=== PATIENT | female | born 1945 | race Hispanic/Latino ===

== ENCOUNTER 2021-01-31 10:54 | Emergency (ER) | payer MEDICARE ==
[2021-01-31] MEDS ORDERED: EPINEPHrine 1 MG/10 ML Abboject SYRINGE ONE (10:57)
[2021-01-31] MEDS ORDERED: Sodium Bicarb 50 MEQ/50 ML Abboject 8.4% SYRINGE ONE (10:57)
[2021-01-31 11:23] LABS: Actual Bicarbonate (HCO3a) 21.6 mEq/L (22-28); Analyzer IN Cardio ER; Base Excess (BEa) -14.2 mEq/L (-2.0 to +3.0); Calcium, Ionized (arterial) 1.78 mmol/L (1.12-1.30); Carboxyhemoglobin (COHb) 1.1 gm% (0.0-3.0); Hemoglobin (Hb) 10.9 g/dL (12.0-16.0); O2 Tension (PaO2), arterial 61.4 mmHg (> 70.0); Potassium - ABG Lab 5.54 mmol/L (3.70-5.30)
[2021-01-31 11:24] LABS: CO2 Tension 136.8 mmHg (35.0-45.0); Puncture Site RBA; pH, Arterial 6.82 (7.35-7.45)
[2021-01-31] MEDS ORDERED: Norepinephrine 8 MG/0.9% NS 250 ML ONE (11:36)
[2021-01-31] MEDS ORDERED: EPINEPHrine 1 MG/ML VIAL ONE (11:40)
[2021-01-31] MEDS ORDERED: Calcium Chloride 1 GM/10 ML Abboject SYRINGE ONE (11:49)
[2021-01-31 11:59] LABS: PTT 71.2 sec (22.9-36.1); Prothrombin Time 54.4 sec (12.0-14.7)
[2021-01-31 12:05] LABS: INR-International Normal Ratio 5.9
[2021-01-31 12:08] LABS: CK (CPK) 556 U/L (29-168); Phosphorus 8.7 mg/dL (2.3-4.7)
[2021-01-31 12:08] LABS: Acetaminophen Less than 6.0 mcg/mL (10.0-30.0); Alcohol 16 mg/dL (Less than 10); Anion Gap 26 mmol/L (10-20); BUN (Urea Nitrogen) 25 mg/dL (9.8-20.1); Calc. Creatinine Clearance 0 mL/min (70-130); Calcium 11.3 mg/dL (7.8-10.44); Carbon Dioxide 18 mmol/L (23-31); Chloride 102 mmol/L (98-107); Glucose 197 mg/dL (83-110); Magnesium 2.3 mg/dL (1.6-2.6); Potassium 5.7 mmol/L (3.5-5.1); Salicylate Less than 8.0 mg/dL (15.0-30.0); Sodium 140 mmol/L (136-145)
[2021-01-31 12:09] LABS: ALT (SGPT) 119 U/L (8-55); AST (SGOT) 1946 U/L (5-34); Albumin 1.4 g/dL (3.4-4.8); Alkaline Phosphatase 308 U/L (40-110); Anion Gap 26 mmol/L (10-20); BUN (Urea Nitrogen) 26 mg/dL (9.8-20.1); Band 20 % (5-11); Bilirubin, Total 0.9 mg/dL (0.2-1.2); Calc. Creatinine Clearance 0 mL/min (70-130); Calcium 11.4 mg/dL (7.8-10.44); Carbon Dioxide 18 mmol/L (23-31); Chloride 102 mmol/L (98-107); Globulin 2.7 g/dL (2.4-3.5); Glucose 200 mg/dL (83-110); Hemoglobin 9.9 g/dL (12.0-16.0); Lymphocytes 31 % (21-51); MDiff Complete? YES; Macrocytosis SLIGHT = 6-15 cells (100X) (0-5/hpf); Mean Corpuscular HGB CONC 30.4 g/dL (32.0-36.0); Mean Corpuscular Hemoglobin 33.1 pg (27.0-31.0); Mean Platelet Volume 10.6 fL (7.4-10.4); Metamyelocyte 1 % (0-0); Monocytes 6 % (0-10); Neutrophil 42 % (42-75); Nucleated RBC 7 % (0); Platelet Count 9 thou/uL (130-400); Polychromasia SLIGHT = 2-3 cells (100X) (0-2/hpf); Potassium 5.7 mmol/L (3.5-5.1); Protein, Total 4.1 g/dL (5.8-8.1); RBC Distribution Width 19.1 % (11.5-14.5); Red Blood Cell (RBC) Count 2.98 mill/uL (4.20-5.40); Reflex for Review?? YES; Sodium 140 mmol/L (136-145); White Blood Cell (WBC) Count 14.7 thou/uL (4.8-10.8)
== END 2021-01-31 12:03 | disposition expired ==
LOC: ERS 10:54
DX: I46.9 Cardiac arrest, cause unspecified (principal); I12.0 Hypertensive chronic kidney disease with stage 5 chronic kidney disease or end stage renal disease; E11.22 Type 2 diabetes mellitus with diabetic chronic kidney disease; N18.6 End stage renal disease; D63.1 Anemia in chronic kidney disease; I48.91 Unspecified atrial fibrillation; Z99.2 Dependence on renal dialysis; E78.5 Hyperlipidemia, unspecified; E66.9 Obesity, unspecified; K86.1 Other chronic pancreatitis; Z79.01 Long term (current) use of anticoagulants; Z79.899 Other long term (current) drug therapy
CPT/HCPCS: 31500; 36556; 36600; 80048; 80053; 80307; 82550; 82805; 83605; 83735; 83880; 84100; 84484; 85025; 85610; 85730; 86850; 86900; 86901; 92950; 94002; 96365; 96367; 96374; 96375; 96376; 99285; J0171; 36415; 85060